=== PATIENT | female | born 1970 | race Caucasian/White ===

== ENCOUNTER 2019-02-21 10:48 | Emergency (ER) | payer MEDICAID ==
[~2019-02-21] VITALS: Ht 162.6 cm; Wt 60.0 kg
[2019-02-21 13:13] VITALS: BP 145/87
== END 2019-02-21 13:15 | disposition home or self-care (01) ==
LOC: EDBD 10:48 → ER 10:48
DX: F43.0 Acute stress reaction (principal); F41.9 Anxiety disorder, unspecified
CPT/HCPCS: 93005; 99283